=== PATIENT | female | born 1975 | race Caucasian/White ===

== ENCOUNTER → 2022-02-09 | Day surgery (SDC) | payer OTHER ==
[~2022-02-09] VITALS: Ht 167.6 cm; Wt 116.1 kg
[~2022-02-09] MED LIST: ASCORBIC ACID500 MG PO; BIOTIN5000 MC1 PO; DESVENLAFAXINE100 M3 PO; DICLOFENAC SODI75 MG PO; MIRENA1 EACH IY; PRILOSEC20 MG PO; VITAMIN D350 MC3 PO
== END | disposition home or self-care (01) ==
LOC: FAS 07:57
DX: Z12.11 Encounter for screening for malignant neoplasm of colon (principal); K57.30 Diverticulosis of large intestine without perforation or abscess without bleeding; K64.8 Other hemorrhoids; K21.9 Gastro-esophageal reflux disease without esophagitis; E66.9 Obesity, unspecified; I10 Essential (primary) hypertension; Z88.1 Allergy status to other antibiotic agents; Z88.8 Allergy status to other drugs, medicaments and biological substances; Z68.42 Body mass index [BMI] 45.0-49.9, adult
CPT/HCPCS: J2250; J2704; J7120